=== PATIENT | female | born 1950 | race Caucasian/White ===

== ENCOUNTER 2024-04-08 21:04 | Emergency (ER) | payer SELFPAY ==
[~2024-04-08] VITALS: Ht 162.6 cm; Wt 55.0 kg
[2024-04-08 21:10] VITALS: TEMP 98; O2SAT 97
[2024-04-08] MEDS ORDERED: ERYT1OIN6 EACHEYE (23:37)
[2024-04-09 00:02] VITALS: BP 100/60; PULSE 80; RESP 15
== END 2024-04-09 00:03 | disposition home or self-care (01) ==
LOC: ER 21:04
DX: H00.016 Hordeolum externum left eye, unspecified eyelid (principal)
CPT/HCPCS: 99283

== ENCOUNTER 2024-06-09 16:48 | Emergency (ER) | payer MEDICARE, MEDICAID ==
[~2024-06-09] VITALS: Ht 162.6 cm; Wt 65.0 kg
[~2024-06-09 16:48] MED LIST: ERYT1OIN6 EACHEYE
[2024-06-09 16:51] VITALS: BP 134/67; PULSE 76; RESP 16; TEMP 98.2; O2SAT 99
[2024-06-09] MEDS ORDERED: ACETAMINOPHEN 500MG TABLET PO ONE (17:45)
[2024-06-09] MEDS ORDERED: ACET-2708 MT (20:42)
== END 2024-06-09 23:17 | disposition home or self-care (01) ==
LOC: ER 16:48
DX: S01.01XA Laceration without foreign body of scalp, initial encounter (principal); W18.39XA Other fall on same level, initial encounter; Y93.89 Activity, other specified; Y92.89 Other specified places as the place of occurrence of the external cause; Y99.8 Other external cause status
CPT/HCPCS: 12001; 99284